=== PATIENT | male | born 1975 | race Caucasian/White ===

== ENCOUNTER 2021-10-10 13:17 | Outpatient (CLI) | payer OTHER, SELFPAY | END 2021-10-10 13:18 | disposition home or self-care (01) | PROVIDERS: Visit Provider Nurse Practitioner Family | DX: R35.0 Frequency of micturition (principal) | CPT/HCPCS: 84153 ==

== ENCOUNTER 2021-10-14 12:17 | Emergency (ER) | payer OTHER, SELFPAY ==
[2021-10-14 12:32] VITALS: BP 152/102; PULSE 77; RESP 22; TEMP 36.2; O2SAT 98; BMI 34.3
--- NOTE | 2021-10-14 12:53 | CRLHL7_ITS ---
For Patients: As a result of the Century Cures Act, medical imaging exams and procedure reports are released immediately into your electronic medical record. You may view this report before your referring provider. If you have questions, please contact your health care provider. Indication: Left lower quadrant pain x4 days Technique: Volumetric multidetector CT images of the abdomen and pelvis were obtained after the administration of intravenous contrast. 126 cc Isovue 370 low osmolar intravenous contrast Comparison: None available. Findings: The lung bases are clear. The liver is enlarged with marked hepatomegaly and hepatic steatosis. Cystic change of the left liver is seen. The portal vein is patent. The gallbladder is unremarkable without evidence of radiopaque calculus. There is no significant common biliary ductal dilatation or abrupt cut off. The spleen is normal in enhancement and size. There is likely mild chronic gastritis change and fatty infiltration of the gastric mucosa. The pancreas is normal in enhancement without significant atrophy. The adrenal glands are unremarkable. The kidneys demonstrate preserved corticomedullary differentiation without evidence of obstructive uropathy. There is moderate stool seen throughout the colon with distal colonic diverticulosis and questionable mild focal thickening of the mid sigmoid colon which may represent minimal colitis change. There is no overt pericolonic inflammation. The appendix is unremarkable. There is no significant mesenteric, retroperitoneal, or pelvic sidewall lymph nodes. The aorta is nonaneurysmal. There is no significant atherosclerotic disease appreciated. The solid pelvic viscera are grossly unremarkable. There is no free fluid or free air. The anterior abdominal wall is intact without significant hernias. Lumbar vertebral body heights are grossly maintained with mild straightening of the normal lumbar lordosis. There is no significant spondylolisthesis or displaced fracture. Impression: Moderate stool seen throughout the colon with colonic diverticulosis of the sigmoid colon with mild focal thickening of the sigmoid colon which may represent mild diverticulitis changes. Moderate hepatomegaly and hepatic steatosis with cyst of the left liver lobe. Mild to moderate chronic gastritis changes. Please note that all CT scans at this facility use dose modulation, iterative reconstruction, and/or weight-based dosing when appropriate to reduce radiation dose to as low as reasonably achievable. Dictated by Jeffrey Murguia MD @ 10/14/2021 1:49:26 PM (Electronically Signed)
--- NOTE | 2021-10-14 13:14 | ED_ITS ---
HPI - Abdominal Pain General Date Seen: 10/14/21 Chief Complaint: Abdominal Pain Stated Complaint: Abdominal pain Time Seen by Provider: 10/14/21 12:35 Source: patient Mode of arrival: ambulatory Limitations: no limitations History of Present Illness HPI narrative: Patient is very nice 46-year-old gentleman who presents here with 3-4 days of abdominal pain left lower quadrant with some radiation to suprapubic region. He describes it worse when he is up moving around but also in the middle the night. It is associated with lots of frequency of urination. But no dysuria. He has had no fevers or chills, 1 loose stool but really no diarrhea or any other concern. He has been seen [facility], and urinalysis was negative, but they started him on Cipro twice daily any said this really is not help. He did find some relief with ibuprofen, and presents here on suggestion of urgent care. No previous history of hospitalizations surgeries on no chronic medication. MD elicited complaint: abdominal pain Pertinent past history: none Onset (ago): day(s) (4) Pain Consistency: constant Location: LLQ Severity: moderate Quality: cramping Radiation: suprapubic Migration to: suprapubic Exacerbating factors: movement Relieving factors: bowel movement Associated symptoms: denies other symptoms Related Data Home Medications Medication Instructions Recorded Confirmed alprazolam 1 mg tablet 1 mg PO QDAY PRN anxiety 10/10/21 10/10/21 cyclobenzaprine 10 mg tablet 10 mg PO TID PRN muscle spasm 10/10/21 10/10/21 lisinopril 40 mg tablet 40 mg PO QDAY 10/10/21 10/10/21 trazodone 50 mg tablet 50 mg PO QDAY PRN sleep 10/10/21 10/10/21 Previous Rx's Medication Instructions Recorded ciprofloxacin HCl 500 mg tablet 500 mg PO BID #14 tabs 10/11/21 ciprofloxacin HCl 500 mg tablet 500 mg PO BID #14 tabs 10/14/21 (Cipro) metronidazole 500 mg tablet 500 mg PO BID #20 tabs 10/14/21 Allergies Allergy/AdvReac Type Severity Reaction Status Date / Time No Known Drug Allergies Allergy Verified 10/14/21 13:23 Review of Systems Status of ROS Reports: 10 or more systems reviewed and unremarkable except as noted in History and below PFSH PFSH Social History Smoking Status: Never smoker How often do you have a drink containing alcohol: never AUDIT-C Alcohol total score: 0 Non-prescribed substance use: denies use service: No Exam Narrative: Exam Narrative: Patient is a very nice 46-year-old gentleman in no apparent distress BMI is elevated, pupils equal round reactive to light there is no scleral icterus redness TMs are normal oropharynx normal neck is supple full range of motion there is no lymphadenopathy anterior posterior chains chest is clear heart sounds are normal abdomen soft tenderness is notable in the left lower quadrant, groins are normal bilaterally, with no hernias, normal male genitalia circumcised, moves all extremities independently well, no rashes neurologic intact moving upper and lower extremities. Const: Vital Signs, click to edit/add: Vital Signs - 24 hr 10/14/21 12:32 Temperature 97.1 F L Pulse Rate [Pulse Oximeter] 77 Respiratory Rate 22 Blood Pressure [Ri ght Upper Arm] 152/102 H Pulse Oximetry 98 Oxygen Delivery Me thod Room Air Documenting provider has reviewed patient's vital signs: yes Course Course Hospital Course: Reviewed with the patient the laboratory work, which was all very reassuring, normal white count normal urinalysis, CT showed possible mild diverticulitis which was what our thought process was pre CT. I spoke with both him and also his by telephone, about this. I recommend continuing the Cipro when starting Flagyl and avoid alcohol. I will give him a total of 10 days worth of both medications, he already has the Cipro partial prescription. May use some Tylenol ibuprofen with this, and I recommend follow-up with Dr. Barr and consideration per of whether not he needs a colonoscopy. Vital Signs Vital signs: Initial Vital Signs Temperature 97.1 F L 10/14/21 12:32 Temperature Source Temporal Artery Scan 10/14/21 12:32 Pulse Rate 77 10/14/21 12:32 Respiratory Rate 22 10/14/21 12:32 Blood Pressure 152/102 H 10/14/21 12:32 Blood Pressure Mean 118 10/14/21 12:32 Blood Pressure Position Sitting 10/14/21 12:32 Pulse Oximetry 98 10/14/21 12:32 Oxygen Delivery Method 10/14/21 12:32 Vital Signs Temperature 97.1 F L 10/14/21 12:32 Pulse Rate 77 10/14/21 12:32 Respiratory Rate 22 10/14/21 12:32 Blood Pressure 152/102 H 10/14/21 12:32 Pulse Oximetry 98 10/14/21 12:32 Oxygen Delivery Method 10/14/21 12:32 Temperature 97.1 F L 10/14/21 12:32 Pulse Rate 77 10/14/21 12:32 Respiratory Rate 22 10/14/21 12:32 Blood Pressure 152/102 H 10/14/21 12:32 Pulse Oximetry 98 10/14/21 12:32 Oxygen Delivery Method 10/14/21 12:32 MDM - Abdominal Pain MDM Narrative Medical decision making narrative: During this evaluation of this patient I considered multiple differential diagnosis is which included the life-threatening such as appendicitis, aortic aneurysm, mesenteric ischemia, bowel perforation, volvulus, and bowel obstruction. Other differential diagnosis is include but are not limited to cholecystitis, pancreatitis, hepatitis, gastritis, GERD, diverticulitis, peptic ulcer disease, pyelonephritis/UTI, renal colic/stone, testicular torsion as well as other acute scrotal processes, inflammatory bowel disease, as well as other etiologies Medical Records Attestation: I reviewed the patient's medical records. Lab Data Attestation: I reviewed the patient's lab results. Labs: Lab Results 10/14/21 10/14/21 10/14/21 Range/Units 13:05 13:10 13:17 WBC 9.02 (4.50-11.00) K/uL RBC 5.35 (4.30-5.90) m/uL Hgb 15.5 (13.5-17.5) gm/dL Hct 47.4 (37.0-53.0) % MCV 89 (80-100) fL MCH 29 (26-34) pg MCHC 33 (32-36) gm/dL RDW Coeff of Miracle 14.5 (11.5-15.5) % Plt Count 279 (140-440) K/uL Neut % (Auto) 52.7 (42.0-72.0) % Lymph % (Auto) 31.7 (20-44) % Grady % (Auto) 12.1 H (0.0-11.0) % Eos % (Auto) 2.7 (0.0-7.0) % Baso % (Auto) 0.6 (0.0-3.0) % Neut # (Auto) 4.76 (1.7-7.0) K/uL Lymph # (Auto) 2.86 (0.90-2.90) K/uL Grady # (Auto) 1.10 H (0.00-0.90) K/UL Eos # (Auto) 0.24 (0.00-0.50) K/uL Baso # (Auto) 0.05 (0.00-0.30) K/uL Abs Immat Gran (auto) 0.02 (0.00-0.30) K/uL Sodium (135-149) mmol/L Potassium (3.6-5.1) mmol/L Chloride (96-114) mmol/L Carbon Dioxide (20-32) mmol/L BUN (5-24) mg/dL Creatinine (0.5-1.5) mg/dL Estimated Creat Clear Estimated GFR ml/min Glucose (60-115) mg/dL Calcium (8.4-10.6) mg/dL Total Bilirubin (0.1-1.5) mg/dL Direct Bilirubin (0.0-0.5) mg/dL AST (12-35) U/L ALT (4-50) U/L Alkaline Phosphatase (40-150) U/L C-Reactive Protein (0.5-1.0) mg/dL Total Protein (6.0-8.3) g/dL Albumin (3.3-5.0) g/dL Amylase (18-89) U/L Lipase (23-300) U/L Urine Color Yellow (Yellow) Urine Appearance Clear (Clear) Urine pH 5.0 (5.0-8.5) Ur Specific [place] >= 1.030 (1.000-1.030) Urine Protein Negative (Negative) Urine Glucose (UA) Negative (Negative) Urine Ketones Negative (Negative) Urine Blood Trace-intact A (Negative) Urine Nitrite Negative (Negative) Urine Bilirubin Negative (Negative) Urine Urobilinogen 0.2 (0.2-1.0) Ur Leukocyte Esterase Negative (Negative) Urine RBC 0-2 (0-2) Urine WBC 0-2 (0-5) Ur Squamous Epith Cells Few (None-Few) Urine Bacteria Few A (None) Urine Mucus Many A (None) SARS-CoV-2 (PCR) Negative SARS-CoV-2 (Negative) Influenza Type A (PCR) Negative PCR FLU A (Negative) Influenza Type B (PCR) Negative PCR FLU B (Negative) RSV (PCR) Negative PCR RSV (Negative) 10/14/21 Range/Units 13:17 WBC (4.50-11.00) K/uL RBC (4.30-5.90) m/uL Hgb (13.5-17.5) gm/dL Hct (37.0-53.0) % MCV (80-100) fL MCH (26-34) pg MCHC (32-36) gm/dL RDW Coeff of Miracle (11.5-15.5) % Plt Count (140-440) K/uL Neut % (Auto) (42.0-72.0) % Lymph % (Auto) (20-44) % Grady % (Auto) (0.0-11.0) % Eos % (Auto) (0.0-7.0) % Baso % (Auto) (0.0-3.0) % Neut # (Auto) (1.7-7.0) K/uL Lymph # (Auto) (0.90-2.90) K/uL Grady # (Auto) (0.00-0.90) K/UL Eos # (Auto) (0.00-0.50) K/uL Baso # (Auto) (0.00-0.30) K/uL Abs Immat Gran (auto) (0.00-0.30) K/uL Sodium 138 (135-149) mmol/L Potassium 4.2 (3.6-5.1) mmol/L Chloride 102 (96-114) mmol/L Carbon Dioxide 27 (20-32) mmol/L BUN 15 (5-24) mg/dL Creatinine 1.0 (0.5-1.5) mg/dL Estimated Creat Clear 105.42 Estimated GFR 95 ml/min Glucose 85 (60-115) mg/dL Calcium 7.9 L (8.4-10.6) mg/dL Total Bilirubin 0.2 (0.1-1.5) mg/dL Direct Bilirubin 0.2 (0.0-0.5) mg/dL AST 36 H (12-35) U/L ALT 64 H (4-50) U/L Alkaline Phosphatase 78 (40-150) U/L C-Reactive Protein < 0.5 L (0.5-1.0) mg/dL Total Protein 7.0 (6.0-8.3) g/dL Albumin 4.1 (3.3-5.0) g/dL Amylase 57 (18-89) U/L Lipase 82 (23-300) U/L Urine Color (Yellow) Urine Appearance (Clear) Urine pH (5.0-8.5) Ur Specific [place] (1.000-1.030) Urine Protein (Negative) Urine Glucose (UA) (Negative) Urine Ketones (Negative) Urine Blood (Negative) Urine Nitrite (Negative) Urine Bilirubin (Negative) Urine Urobilinogen (0.2-1.0) Ur Leukocyte Esterase (Negative) Urine RBC (0-2) Urine WBC (0-5) Ur Squamous Epith Cells (None-Few) Urine Bacteria (None) Urine Mucus (None) SARS-CoV-2 (PCR) (Negative) Influenza Type A (PCR) (Negative) Influenza Type B (PCR) (Negative) RSV (PCR) (Negative) Imaging Data CT scan - abdomen: My impression: Mild the inflammation around descending colon/sigmoid on the left side. Radiologist's impression: Patient: [facility] Facility:?[facility] Patient ID:?[id number] Site Patient ID:?[id number]. Site :?[id number] Study:?CT Abdomen/Pelvis W/ 126CC [id number] 1:34:29 PM Ordering Physician:Che Car Final Report: Indication: Left lower quadrant pain x4 days Technique: Volumetric multidetector CT images of the abdomen and pelvis were obtained after the administration of intravenous contrast. 126 cc Isovue 370 low osmolar intravenous contrast Comparison: None available. Findings: The lung bases are clear. The liver is enlarged with marked hepatomegaly and hepatic steatosis. Cystic change of the left liver is seen. The portal vein is patent. The gallbladder is unremarkable without evidence of radiopaque calculus. There is no significant common biliary ductal dilatation or abrupt cut off. The spleen is normal in enhancement and size. There is likely mild chronic gastritis change and fatty infiltration of the gastric mucosa. The pancreas is normal in enhancement without significant atrophy. The adrenal glands are unremarkable. The kidneys demonstrate preserved corticomedullary differentiation without evidence of obstructive uropathy. There is moderate stool seen throughout the colon with distal colonic diverticulosis and questionable mild focal thickening of the mid sigmoid colon which may represent minimal colitis change. There is no overt pericolonic inflammation. The appendix is unremarkable. There is no significant mesenteric, retroperitoneal, or pelvic sidewall lymph nodes. The aorta is nonaneurysmal. There is no significant atherosclerotic disease appreciated. The solid pelvic viscera are grossly unremarkable. There is no free fluid or free air. The anterior abdominal wall is intact without significant hernias. Lumbar vertebral body heights are grossly maintained with mild straightening of the normal lumbar lordosis. There is no significant spondylolisthesis or displaced fracture. Impression: Moderate stool seen throughout the colon with colonic diverticulosis of the sigmoid colon with mild focal thickening of the sigmoid colon which may represent mild diverticulitis changes. Moderate hepatomegaly and hepatic steatosis with cyst of the left liver lobe. Mild to moderate chronic gastritis changes. Please note that all CT scans at this facility use dose modulation, iterative reconstruction, and/or weight-based dosing when appropriate to reduce radiation dose to as low as reasonably achievable. Dictated by Jeffrey Murguia MD @ 10/14/2021 1:49:26 PM (Electronic Signature) Discharge Plan Discharge Clinical Impression: Diverticulitis Patient Disposition: Home, Self-Care Condition: Stable Instructions: Diverticulitis (ED), Diverticulitis Diet (ED) Additional Instructions: Home rest I will give the 2 prescriptions 1 for 7 more days of the Cipro, and we will add in some metronidazole also with this. Medications help stop the inflammation and the infection, also recommend that you not drink alcohol at all while on the medications, and for 48 hours after stopping them. I have given you information on diet, and diverticulitis, increasing pain, fevers chills, then follow-up is necessary in the ER otherwise keep your appointment to see Prescriptions: New metronidazole 500 mg tablet 500 mg PO BID Qty: 20 0RF ciprofloxacin HCl [Cipro] 500 mg tablet 500 mg PO BID Qty: 14 0RF No Action lisinopril 40 mg tablet 40 mg PO QDAY trazodone 50 mg tablet 50 mg PO QDAY PRN (Reason: sleep) alprazolam 1 mg tablet 1 mg PO QDAY PRN (Reason: anxiety) cyclobenzaprine 10 mg tablet 10 mg PO TID PRN (Reason: muscle spasm) ciprofloxacin HCl 500 mg tablet 500 mg PO BID Qty: 14 0RF Follow Up/Referrals: Marc Barr MD [Staff Physician] - Provider,Not a Local [Primary Care Provider] - Stand Alone Forms: [employer] Info Instructions
[2021-10-14 13:35] LABS: Basophils Absolute Auto 0.05 K/uL (0.00-0.30); Basophils Percent Auto 0.6 % (0.0-3.0); Eosinophils Absolute Auto 0.24 K/uL (0.00-0.50); Eosinophils Percent Auto 2.7 % (0.0-7.0); Hematocrit 47.4 % (37.0-53.0); Hemoglobin* 15.5 gm/dL (13.5-17.5); Immature Granulocytes Abs Auto 0.02 K/uL (0.00-0.30); Lymphocytes Absolute Auto 2.86 K/uL (0.90-2.90); Lymphocytes Percent Auto 31.7 % (20-44); Mean Corpuscular HGB Conc 33 gm/dL (32-36); Mean Corpuscular Hemoglobin 29 pg (26-34); Mean Corpuscular Volume 89 fL (80-100); Monocytes Percent Auto 12.1 % (0.0-11.0); Neutrophils Absolute Auto 4.76 K/uL (1.7-7.0); Neutrophils Percent Auto 52.7 % (42.0-72.0); Platelet Count* 279 K/uL (140-440); RDW Coefficient of Variation % 14.5 % (11.5-15.5); Red Blood Count 5.35 m/uL (4.30-5.90); White Blood Count* 9.02 K/uL (4.50-11.00)
[2021-10-14] MEDS: 0.9 % SODIUM CHLORIDE 1000 ml 1,000 ML IV (13:42)
[2021-10-14 13:44] LABS: Slide Review Reflex No
[2021-10-14 13:48] LABS: Appearance Urine Clear (Clear); Bilirubin Urine Negative (Negative); Blood Urine Trace-intact (Negative); Color Urine Yellow (Yellow); Glucose Urine Negative (Negative); Ketones Urine Negative (Negative); Leukocyte Esterase Urine Negative (Negative); Nitrite Urine Negative (Negative); Protein Urine Negative (Negative); Specific Gravity Urine >= 1.030 (1.000-1.030); Urobilinogen Urine 0.2 (0.2-1.0)
[2021-10-14 14:06] LABS: RBC Urine 0-2 (0-2)
[2021-10-14 14:07] LABS: Bacteria Urine Few; Mucus Urine Many; Squamous Epithelial Cell Urine Few (None-Few); WBC Urine 0-2 (0-5)
[2021-10-14 14:10] LABS: PCR FLU A Negative PCR FLU A (Negative); PCR FLU B Negative PCR FLU B (Negative); PCR RSV Negative PCR RSV (Negative); SARS PCR* Negative SARS-CoV-2 (Negative)
[2021-10-14 14:19] LABS: Albumin* 4.1 g/dL (3.3-5.0); Chloride* 102 mmol/L (96-114); Sodium* 138 mmol/L (135-149)
[2021-10-14 14:20] LABS: Potassium* 4.2 mmol/L (3.6-5.1)
[2021-10-14 14:21] LABS: Amylase* 57 U/L (18-89); Est. Creatinine Clearance* 105.42; Estimated Glomerular Filt Rate 95 ml/min
[2021-10-14 14:22] LABS: Alkaline Phosphatase* 78 U/L (40-150); Aspartate Amino Transferase* 36 U/L (12-35); Bilirubin Direct* 0.2 mg/dL (0.0-0.5); Bilirubin Total* 0.2 mg/dL (0.1-1.5); Blood Urea Nitrogen* 15 mg/dL (5-24); Carbon Dioxide* 27 mmol/L (20-32); Glucose* 85 mg/dL (60-115)
[2021-10-14 14:23] LABS: Alanine Aminotransferase* 64 U/L (4-50); Calcium* 7.9 mg/dL (8.4-10.6); Lipase* 82 U/L (23-300)
[2021-10-14 14:26] LABS: C Reactive Protein* < 0.5 mg/dL (0.5-1.0)
== END 2021-10-14 15:05 | disposition home or self-care (01) ==
PROVIDERS: Emergency Provider Family Medicine
DX: R10.32 Left lower quadrant pain (principal); K57.92 Diverticulitis of intestine, part unspecified, without perforation or abscess without bleeding
CPT/HCPCS: 36415; 74177; 80048; 80076; 81001; 81003; 81015; 82150; 83690; 84703; 85025; 86140; 87086; 87502; 87634; 87635; 96360; 99284; J7030; Q9967

== ENCOUNTER 2021-10-21 10:34 | Outpatient (CLI) | payer OTHER, SELFPAY ==
[2021-10-21 14:34] LABS: C Reactive Protein* < 0.5 mg/dL (0.5-1.0)
== END 2021-10-21 10:35 | disposition home or self-care (01) ==
LOC: LKVREF 10:36
PROVIDERS: Visit Provider Family Medicine
DX: K57.32 Diverticulitis of large intestine without perforation or abscess without bleeding (principal)
CPT/HCPCS: 86140

== ENCOUNTER 2021-10-27 11:36 | Outpatient (CLI) | payer OTHER, SELFPAY ==
[2021-10-27 11:48] LABS: Basophils Absolute Auto 0.05 K/uL (0.00-0.30); Basophils Percent Auto 0.6 % (0.0-3.0); Eosinophils Absolute Auto 0.25 K/uL (0.00-0.50); Eosinophils Percent Auto 3.1 % (0.0-7.0); Hematocrit 46.9 % (37.0-53.0); Hemoglobin* 15.3 gm/dL (13.5-17.5); Lymphocytes Absolute Auto 2.44 K/uL (0.90-2.90); Lymphocytes Percent Auto 30.1 % (20-44); Mean Corpuscular HGB Conc 33 gm/dL (32-36); Mean Corpuscular Hemoglobin 29 pg (26-34); Mean Corpuscular Volume 90 fL (80-100); Monocytes Percent Auto 8.6 % (0.0-11.0); Neutrophils Absolute Auto 4.67 K/uL (1.7-7.0); Neutrophils Percent Auto 57.6 % (42.0-72.0); Platelet Count* 277 K/uL (140-440); Red Blood Count 5.23 m/uL (4.30-5.90); White Blood Count* 8.11 K/uL (4.50-11.00)
[2021-10-27 11:50] LABS: Slide Review Reflex No
[2021-10-27 22:12] LABS: Albumin* 4.7 g/dL (3.3-5.0); Chloride* 104 mmol/L (96-114); Sodium* 138 mmol/L (135-149)
[2021-10-27 22:13] LABS: Potassium* 4.1 mmol/L (3.6-5.1)
[2021-10-27 22:15] LABS: Bilirubin Total* 0.6 mg/dL (0.1-1.5); Carbon Dioxide* 23 mmol/L (20-32); Estimated Glomerular Filt Rate 95 ml/min
[2021-10-27 22:16] LABS: Alanine Aminotransferase* 81 U/L (4-50); Alkaline Phosphatase* 81 U/L (40-150); Aspartate Amino Transferase* 60 U/L (12-35); Blood Urea Nitrogen* 16 mg/dL (5-24); Calcium* 9.3 mg/dL (8.4-10.6); Glucose* 135 mg/dL (60-115); Total Protein* 7.8 g/dL (6.0-8.3)
[2021-10-27 22:19] LABS: C Reactive Protein* < 0.5 mg/dL (0.5-1.0)
== END 2021-10-27 11:37 | disposition home or self-care (01) ==
PROVIDERS: PCP Family Medicine; Visit Provider Family Medicine
DX: R10.9 Unspecified abdominal pain (principal); K57.32 Diverticulitis of large intestine without perforation or abscess without bleeding; I10 Essential (primary) hypertension; R35.0 Frequency of micturition
CPT/HCPCS: 80053; 85025; 86140

== ENCOUNTER 2021-10-28 08:51 | Outpatient (CLI) | payer OTHER, SELFPAY ==
--- NOTE | 2021-10-28 10:00 | CRLHL7_ITS ---
For Patients: As a result of the Century Cures Act, medical imaging exams and procedure reports are released immediately into your electronic medical record. You may view this report before your referring provider. If you have questions, please contact your health care provider. Indication: Abdominal pain Technique: Postcontrast CT abdomen and pelvis. 98 cc Isovue 370 intravenous contrast. Please note that all CT scans at this facility use dose modulation, iterative reconstruction, and/or weight-based dosing when appropriate to reduce radiation dose to as low as reasonably achievable. Comparison: 10/14/2021 Findings: Lung bases clear. Diffuse hepatic steatosis. Simple cyst left hepatic lobe. Mild incidental differential profusion regarding the anterior liver. Gallbladder normal. Adrenal glands, kidneys, ureters, spleen and pancreas are normal. No adenopathy. No free air, free fluid or abscess. Sigmoid diverticulosis. No diverticulitis. No evidence of inflammatory bowel disease. No fracture. Bladder normal. Impression: No acute intra-abdominal or intrapelvic pathology. Chronic hepatic steatosis. Please note that all CT scans at this facility use dose modulation, iterative reconstruction, and/or weight-based dosing when appropriate to reduce radiation dose to as low as reasonably achievable. Dictated by Manolo German MD @ 10/28/2021 11:43:29 AM (Electronically Signed)
== END 2021-10-28 08:52 | disposition home or self-care (01) ==
LOC: CT 08:52
PROVIDERS: PCP Family Medicine; Visit Provider Family Medicine
DX: R10.9 Unspecified abdominal pain (principal); K76.0 Fatty (change of) liver, not elsewhere classified
CPT/HCPCS: 74177; Q9967

== ENCOUNTER 2022-11-03 04:49 | Emergency (ER) | payer OTHER, SELFPAY ==
[2022-11-03 04:54] VITALS: BP 167/114; PULSE 64; RESP 16; TEMP 37.1; O2SAT 97; BMI 34.3
--- NOTE | 2022-11-03 05:13 | ED_ITS ---
HPI - General Adult General Chief complaint: Flank Pain Stated complaint: Back Pain Time Seen by Provider: 11/03/22 04:59 Source: patient Mode of arrival: ambulatory Limitations: no limitations History of Present Illness HPI narrative: 47-year-old male known to me from [employer] presents to the emergency department with a 1-1/2 hour history of right-sided flank pain, sudden onset, woke from sleep. Was accompanied by vomiting x1. No hematuria, no dysuria. No fever. No trauma or injury. Prior history of similar symptoms 10 years ago when he had a kidney stone. It does not sound as though that would require lithotripsy, surgery or stent placement. No problems since. He does have a history of hypertension, takes lisinopril for this. He tried taking some ibuprofen at 3:00 a.m. with no significant improvement in symptoms. Other than the episode 10 years ago, no history of chronic kidney disease or long-term kidney problems. I reviewed the chart and see that he had labs last drawn about a year ago, good kidney function, normal electrolytes at that time. No other abdominal pain, no rash. No other concerns today. Past medical history notable for hypertension, only home medication is lisinopr il. Nonsmoker. ROS notable for the flank pain and urinary symptoms as above, otherwise denies times 12 systems. Related Data Home Medications Medication Instructions Recorded Confirmed trazodone 50 mg tablet 50 mg PO QDAY PRN sleep 10/10/21 10/27/21 Previous Rx's Medication Instructions Recorded lisinopril 40 mg tablet 40 mg PO QDAY #90 tabs 10/21/21 tamsulosin 0.4 mg capsule (Flomax) 0.4 mg PO DAILY PRN #7 caps 11/03/22 Allergies Allergy/AdvReac Type Severity Reaction Status Date / Time No Known Drug Allergies Allergy Verified 11/03/22 04:54 [facility] Medical History Diverticulitis large intestine ?K57.32 - Diverticulitis of large intestine without perforation or abscess without bleeding (ICD-10) History of rotator cuff syndrome ?Z87.39 - Personal history of other diseases of the musculoskeletal system and connective tissue (ICD-10) History of hyperlipidemia ?Z86.39 - Personal history of other endocrine, nutritional and metabolic disease (ICD-10) History of erectile dysfunction ?Z87.438 - Personal history of other diseases of male genital organs (ICD-10) Surgical History Status post appendectomy ?Z90.49 - Acquired absence of other specified parts of digestive tract (ICD- 10) Family History Father High blood pressure Mother High blood pressure Social History Smoking Status: Former smoker How often do you have a drink containing alcohol: never AUDIT-C Alcohol total score: 0 Non-prescribed substance use: denies use service: No Exam Const: Vital Signs, click to edit/add: Vital Signs - 24 hr 11/03/22 04:54 Temperature 98.8 F Pulse Rate [Pulse Oximeter] 64 Respiratory Rate 16 Blood Pressure [Ri ght Upper Arm] 167/114 H Pulse Oximetry 97 Oxygen Delivery Me thod Room Air Documenting provider has reviewed patient's vital signs: yes Common normals: no apparent distress General appearance: cooperative and well kempt HENMT: Common normals: normocephalic Head and scalp: normocephalic Face and sinus: normal facial exam Eye: Common normals: conjunctivae normal General eye: normal appearance of both eyes Conjunctiva: conjunctiva(e) normal Neck & C-Spine: Common normals: no lymphadenopathy Resp: Common normals: normal respiratory effort, no use of accessory muscles and clear to auscultation bilaterally Effort & inspection: able to speak in complete sentences Auscultation: clear to auscultation bilaterally Cardio: Common normals: regular rate, regular rhythm, S1 normal heart sound, S2 normal heart sound and no murmurs Rate: regular rate Rhythm: regular rhythm Heart sounds: S1 normal and S2 normal GI: Common normals: Normal to inspection, nondistended, normoactive bowel sounds present, soft to palpation, non-tender, no hepatosplenomegaly and no masses Palpation: soft and no hepatosplenomegaly : Common normals: no CVA tenderness Bladder/kidney exam: no CVA tenderness Back & Pelvis: Common normals: no CVA tenderness Other: Mild tenderness to right lower lateral back area, not CVA area Extremity: Common normals: normal to inspection and normal capillary refill Psych: Common normals: speech normal Appearance: well kempt Activity/motor behavior: appropriate eye contact Speech: normal speech Insight: insight good Judgement: judgment good Other: Mildly uncomfortable but very cooperative. No impairment. Skin: Common normals: no rashes or lesions noted General skin exam: no rashes or lesions noted Course Course ED Course: Suspect kidney stone. Urinalysis ordered. Will place IV, give 15 mg of IV Toradol, 4 Zofran and 0.4 of Flomax while we await basic lab results for CBC, basic metabolic panel and CRP results. Suspect urinalysis will show trace blood and will then plan for noncontrast CT. Differential diagnosis also includes diverticulitis, intestinal obstruction, volvulus, appendicitis, shingles, musculoskeletal etiology, among others. Awaiting lab findings. Reevaluation(s) Reevaluation #1: CT findings reviewed with patient, 2 mm UVJ stone noted. Labs are overall reassuring. No signs of significant leukocytosis, infection or other abnormality. Toradol did help but not to his liking, will give 10 mg of oral oxycodone. No further vomiting. Tolerated IV fluids well. Discussed management. Patient will be given oral Toradol and oral oxycodone to use p.r.n. from [facility]. Work note given. Flomax sent to pharmacy to use once daily until stone passes. Push fluids. Alarm symptoms of fever, weakness, worsening symptoms reviewed. Patient verbalizes understanding and agreement. Vital Signs Vital signs: Initial Vital Signs Temperature 98.8 F 11/03/22 04:54 Temperature Source Temporal Artery Scan 11/03/22 04:54 Pulse Rate 64 11/03/22 04:54 Pulse Rhythm Regular 11/03/22 04:54 Respiratory Rate 16 11/03/22 04:54 Blood Pressure 167/114 H 11/03/22 04:54 Blood Pressure Mean 131 H 11/03/22 04:54 Pulse Oximetry 97 11/03/22 04:54 Oxygen Delivery Method Room Air 11/03/22 04:54 Vital Signs Temperature 98.8 F 11/03/22 04:54 Pulse Rate 64 11/03/22 04:54 Respiratory Rate 16 11/03/22 04:54 Blood Pressure 167/114 H 11/03/22 04:54 Pulse Oximetry 97 11/03/22 04:54 Oxygen Delivery Method Room Air 11/03/22 04:54 Temperature 98.8 F 11/03/22 04:54 Pulse Rate 64 11/03/22 04:54 Respiratory Rate 16 11/03/22 04:54 Blood Pressure 167/114 H 11/03/22 04:54 Pulse Oximetry 97 11/03/22 04:54 Oxygen Delivery Method Room Air 11/03/22 04:54 Medical Decision Making Lab Data Lab results reviewed: Yes I reviewed the patient's lab results Lab results narrative: Reassuring Labs: Lab Results 11/03/22 11/03/22 11/03/22 Range/Units 04:55 04:55 04:55 WBC (4.50-11.00) K/uL RBC (4.30-5.90) m/uL Hgb (13.5-17.5) gm/dL Hct (37.0-53.0) % MCV (80-100) fL MCH (26-34) pg MCHC (32-36) gm/dL RDW Coeff of Miracle (11.5-15.5) % Plt Count (140-440) K/uL Neut % (Auto) (42.0-72.0) % Lymph % (Auto) (20-44) % Cameron % (Auto) (0.0-11.0) % Eos % (Auto) (0.0-7.0) % Baso % (Auto) (0.0-3.0) % Neut # (Auto) (1.7-7.0) K/uL Lymph # (Auto) (0.90-2.90) K/uL Cameron # (Auto) (0.00-0.90) K/UL Eos # (Auto) (0.00-0.50) K/uL Baso # (Auto) (0.00-0.30) K/uL Abs Immat Gran (auto) (0.00-0.30) K/uL Imm/Tot Granulo (auto) % Sodium (135-149) mmol/L Potassium (3.6-5.1) mmol/L Chloride (96-114) mmol/L Carbon Dioxide (20-32) mmol/L Anion Gap (7-15) mEq/L BUN (5-24) mg/dL Creatinine (0.5-1.5) mg/dL Estimated Creat Clear Estimated GFR ml/min Glucose (60-115) mg/dL Calcium (8.4-10.6) mg/dL C-Reactive Protein (0.5-1.0) mg/dL Urine Color Yellow (Yellow) Urine Appearance Clear (Clear) Urine pH 5.0 (5.0-8.5) Ur Specific [place] >= 1.030 (1.000-1.030) Urine Protein Trace A (Negative) Urine Glucose (UA) Negative (Negative) Urine Ketones Negative (Negative) Urine Blood Negative (Negative) Urine Nitrite Negative (Negative) Urine Bilirubin 1+ A (Negative) Urine Urobilinogen 0.2 (0.2-1.0) Ur Leukocyte Esterase Negative (Negative) Urine RBC Cancelled 0-2 Urine WBC Cancelled 0-2 Urine WBC Clumps Cancelled Ur Squamous Epith Cells Cancelled [place] Biurate Crystals Calcium Carbonate Cryst Calcium Phosphate Cryst Calcium Oxalate Crystal Cystine Crystals Uric Acid Crystals Triple Phos Crystals Sulfur Crystals Cholesterol Crystals Tyrosine Crystals Hippuric Acid Crystals Amorphous Sediment Other Sediment Urine Bacteria Fatty Casts Hyaline Casts Fine Granular Casts Coarse Granular Casts Waxy Casts RBC Casts WBC Casts Other Casts Urine Starch Urine Mucus Urine Trichomonas Urine Yeast 11/03/22 11/03/22 11/03/22 Range/Units 04:55 04:55 04:55 WBC (4.50-11.00) K/uL RBC (4.30-5.90) m/uL Hgb (13.5-17.5) gm/dL Hct (37.0-53.0) % MCV (80-100) fL MCH (26-34) pg MCHC (32-36) gm/dL RDW Coeff of Miracle (11.5-15.5) % Plt Count (140-440) K/uL Neut % (Auto) (42.0-72.0) % Lymph % (Auto) (20-44) % Cameron % (Auto) (0.0-11.0) % Eos % (Auto) (0.0-7.0) % Baso % (Auto) (0.0-3.0) % Neut # (Auto) (1.7-7.0) K/uL Lymph # (Auto) (0.90-2.90) K/uL Cameron # (Auto) (0.00-0.90) K/UL Eos # (Auto) (0.00-0.50) K/uL Baso # (Auto) (0.00-0.30) K/uL Abs Immat Gran (auto) (0.00-0.30) K/uL Imm/Tot Granulo (auto) % Sodium (135-149) mmol/L Potassium (3.6-5.1) mmol/L Chloride (96-114) mmol/L Carbon Dioxide (20-32) mmol/L Anion Gap (7-15) mEq/L BUN (5-24) mg/dL Creatinine (0.5-1.5) mg/dL Estimated Creat Clear Estimated GFR ml/min Glucose (60-115) mg/dL Calcium (8.4-10.6) mg/dL C-Reactive Protein (0.5-1.0) mg/dL Urine Color (Yellow) Urine Appearance (Clear) Urine pH (5.0-8.5) Ur Specific [place] (1.000-1.030) Urine Protein (Negative) Urine Glucose (UA) (Negative) Urine Ketones (Negative) Urine Blood (Negative) Urine Nitrite (Negative) Urine Bilirubin (Negative) Urine Urobilinogen (0.2-1.0) Ur Leukocyte Esterase (Negative) Urine RBC Urine WBC Urine WBC Clumps Ur Squamous Epith Cells Few [place] Biurate Crystals Cancelled Calcium Carbonate Cryst Cancelled Calcium Phosphate Cryst Cancelled Calcium Oxalate Crystal Cancelled Cystine Crystals Cancelled Uric Acid Crystals Cancelled Triple Phos Crystals Cancelled Sulfur Crystals Cancelled Cholesterol Crystals Cancelled Tyrosine Crystals Cancelled Hippuric Acid Crystals Cancelled Amorphous Sediment Cancelled Other Sediment Cancelled Urine Bacteria Cancelled Few A Fatty Casts Cancelled Hyaline Casts Cancelled Fine Granular Casts Cancelled Coarse Granular Casts Cancelled Waxy Casts Cancelled RBC Casts Cancelled WBC Casts Cancelled Other Casts Cancelled Urine Starch Cancelled Urine Mucus Cancelled Many A Urine Trichomonas Cancelled Urine Yeast Cancelled 11/03/22 Range/Units 05:15 WBC 8.82 (4.50-11.00) K/uL RBC 5.27 (4.30-5.90) m/uL Hgb 15.1 (13.5-17.5) gm/dL Hct 46.7 (37.0-53.0) % MCV 89 (80-100) fL MCH 29 (26-34) pg MCHC 32 (32-36) gm/dL RDW Coeff of Miracle 14.3 (11.5-15.5) % Plt Count 269 (140-440) K/uL Neut % (Auto) 50.8 (42.0-72.0) % Lymph % (Auto) 34.7 (20-44) % Cameron % (Auto) 10.4 (0.0-11.0) % Eos % (Auto) 3.2 (0.0-7.0) % Baso % (Auto) 0.6 (0.0-3.0) % Neut # (Auto) 4.48 (1.7-7.0) K/uL Lymph # (Auto) 3.06 H (0.90-2.90) K/uL Cameron # (Auto) 0.90 (0.00-0.90) K/UL Eos # (Auto) 0.28 (0.00-0.50) K/uL Baso # (Auto) 0.05 (0.00-0.30) K/uL Abs Immat Gran (auto) 0.03 (0.00-0.30) K/uL Imm/Tot Granulo (auto) 0.3 % Sodium 139 (135-149) mmol/L Potassium 4.1 (3.6-5.1) mmol/L Chloride 103 (96-114) mmol/L Carbon Dioxide 27 (20-32) mmol/L Anion Gap 9 (7-15) mEq/L BUN 16 (5-24) mg/dL Creatinine 1.1 (0.5-1.5) mg/dL Estimated Creat Clear 94.83 Estimated GFR 84 ml/min Glucose 155 H (60-115) mg/dL Calcium 9.4 (8.4-10.6) mg/dL C-Reactive Protein 0.9 (0.5-1.0) mg/dL Urine Color (Yellow) Urine Appearance (Clear) Urine pH (5.0-8.5) Ur Specific [place] (1.000-1.030) Urine Protein (Negative) Urine Glucose (UA) (Negative) Urine Ketones (Negative) Urine Blood (Negative) Urine Nitrite (Negative) Urine Bilirubin (Negative) Urine Urobilinogen (0.2-1.0) Ur Leukocyte Esterase (Negative) Urine RBC Urine WBC Urine WBC Clumps Ur Squamous Epith Cells [place] Biurate Crystals Calcium Carbonate Cryst Calcium Phosphate Cryst Calcium Oxalate Crystal Cystine Crystals Uric Acid Crystals Triple Phos Crystals Sulfur Crystals Cholesterol Crystals Tyrosine Crystals Hippuric Acid Crystals Amorphous Sediment Other Sediment Urine Bacteria Fatty Casts Hyaline Casts Fine Granular Casts Coarse Granular Casts Waxy Casts RBC Casts WBC Casts Other Casts Urine Starch Urine Mucus Urine Trichomonas Urine Yeast Imaging Data CT scan - abdomen: Attestation: I have reviewed the pertinent imaging results. My impression: Small stone at right UVJ Radiologist's impression: IMPRESSION: Right-sided obstructive uropathy due to a 2 millimeter calcified calculus at the right ureteropelvic junction. No intrarenal calculi noted. Please note that all CT scans at this facility use dose modulation, iterative reconstruction, and/or weight-based dosing when appropriate to reduce radiation dose to as low as reasonably achievable. Dictated by Domenic Ponce MD @ 11/03/2022 6:29:56 AM Discharge Plan Discharge Clinical Impression: Calculus of ureterovesical junction (UVJ) Patient Disposition: Home w/ Parent or Adult Condition: Improved Instructions: Ureteral Stones (ED) Additional Instructions: As we discussed, you have a 2 mm stone right at the junction of the right ureter as it enters the bladder. This is a common area for the stones to get hung up and cause more pain. Things improve markedly once it enters the bladder. Your homework is to drink as much fluid as possible (70-90 oz per day) to flush the stone. You have been given Flomax, a medication that will help with the spasm pain and help dilate open the ureter slightly. You were also given Toradol for pain and oxycodone. At home, start with the Toradol, 10 mg every 6 hours as needed for pain. Add in Tylenol 1000 mg every 6 hours as needed on top of this. If the pain is still very bothersome, take the oxycodone tablets 1-2 tablets every 4 hours as needed. You will only have a limited supply of the oxycodone. For most, the stones will pass within a couple of days, often within 24 hours into the bladder. In the bladder, they do often dissolved into smaller granules and then will eventually pass but this is less predictable. If you have no improvement of your symptoms within a week you should seek re-evaluation by her primary care or urgent care. Any fevers, feelings of severe sickness, you should come back to the emergency department. You may continue all of your other typical medications in the interim. No work for the next 24 hours. Activity Level: Activity as Tolerated Discharge Diet: Regular Prescriptions: New tamsulosin [Flomax] 0.4 mg capsule 0.4 mg PO DAILY PRNQty: 7 0RF No Action lisinopril 40 mg tablet 40 mg PO QDAY Qty: 90 3RF trazodone 50 mg tablet 50 mg PO QDAY PRN (Reason: sleep) Follow Up/Referrals: Marc Barr MD [Primary Care Provider] - Stand Alone Forms: Ready To Travel Info Instructions
[2022-11-03] MEDS: KETOROLAC 15 MG/ML inj IVP (05:16)
[2022-11-03] MEDS: ONDANSETRON 2 MG/ML inj 4 MG IVP (05:16)
[2022-11-03] MEDS: 0.9 % SODIUM CHLORIDE 1000 ml 1,000 ML IV (05:17)
[2022-11-03 05:28] LABS: Basophils Absolute Auto 0.05 K/uL (0.00-0.30); Basophils Percent Auto 0.6 % (0.0-3.0); Eosinophils Absolute Auto 0.28 K/uL (0.00-0.50); Eosinophils Percent Auto 3.2 % (0.0-7.0); Hematocrit 46.7 % (37.0-53.0); Hemoglobin* 15.1 gm/dL (13.5-17.5); Immature Granulocytes Abs Auto 0.03 K/uL (0.00-0.30); Immature Granulocytes Pct Auto 0.3 %; Lymphocytes Absolute Auto 3.06 K/uL (0.90-2.90); Lymphocytes Percent Auto 34.7 % (20-44); Mean Corpuscular HGB Conc 32 gm/dL (32-36); Mean Corpuscular Hemoglobin 29 pg (26-34); Mean Corpuscular Volume 89 fL (80-100); Monocytes Percent Auto 10.4 % (0.0-11.0); Neutrophils Absolute Auto 4.48 K/uL (1.7-7.0); Neutrophils Percent Auto 50.8 % (42.0-72.0); Platelet Count* 269 K/uL (140-440); RDW Coefficient of Variation % 14.3 % (11.5-15.5); Red Blood Count 5.27 m/uL (4.30-5.90); White Blood Count* 8.82 K/uL (4.50-11.00)
[2022-11-03 05:28] LABS: Appearance Urine Clear (Clear); Bilirubin Urine 1+ (Negative); Blood Urine Negative (Negative); Color Urine Yellow (Yellow); Glucose Urine Negative (Negative); Ketones Urine Negative (Negative); Leukocyte Esterase Urine Negative (Negative); Nitrite Urine Negative (Negative); Protein Urine Trace (Negative); Specific Gravity Urine >= 1.030 (1.000-1.030); Urobilinogen Urine 0.2 (0.2-1.0)
[2022-11-03 05:31] LABS: Slide Review Reflex No
[2022-11-03 05:37] LABS: Bacteria Urine Few; Mucus Urine Many; RBC Urine 0-2 (0-2); Squamous Epithelial Cell Urine Few (None-Few); WBC Urine 0-2 (0-5)
[2022-11-03 05:37] LABS: Chloride* 103 mmol/L (96-114); Potassium* 4.1 mmol/L (3.6-5.1); Sodium* 139 mmol/L (135-149)
--- NOTE | 2022-11-03 05:39 | CRLHL7_ITS ---
For Patients: As a result of the Century Cures Act, medical imaging exams and procedure reports are released immediately into your electronic medical record. You may view this report before your referring provider. If you have questions, please contact your health care provider. INDICATION: Right-sided flank pain COMPARISON: Prior studies are not currently available for comparison TECHNIQUE: CT examination of the abdomen and pelvis was performed without intravenous contrast. Thin section axial images were obtained from the lung bases through the pubic symphysis. Oral contrast was not administered. Please note that all CT scans at this facility use dose modulation, iterative reconstruction, and/or weight-based dosing when appropriate to reduce radiation dose to as low as reasonably achievable. FINDINGS: LUNG BASES: The lung bases as visualized appear normal.The heart size is normal at the lung bases. LIVER/BILIARY SYSTEM:Enlarged fatty infiltrated liver. No focal mass or biliary ductal dilation.The gallbladder appears normal ADRENALS: Normal non-contrast appearance KIDNEYS, URETERS and BLADDER:No definite intrarenal calculi. There is right-sided obstructive uropathy due to a 2 millimeter calcified calculus at the right ureteropelvic junction. SPLEEN:Normal non-contrast appearance. PANCREAS: Normal non-contrast appearance. RETROPERITONEUM and MESENTERY: There is no mass, adenopathy or aortic aneurysm. GASTROINTESTINAL SYSTEM: There is no evidence of diverticulitis, colitis, mechanical obstruction, or appendicitis. The small bowel as visualized appears normal.A few scattered diverticula are noted PELVIS: No mass, adenopathy or free fluid. OSSEOUS STRUCTURES and ABDOMINAL WALL: There is an age-appropriate appearance of the osseous structures.No significant abdominal wall defect. OTHER: No free fluid or free air. IMPRESSION: Right-sided obstructive uropathy due to a 2 millimeter calcified calculus at the right ureteropelvic junction. No intrarenal calculi noted. Please note that all CT scans at this facility use dose modulation, iterative reconstruction, and/or weight-based dosing when appropriate to reduce radiation dose to as low as reasonably achievable. Dictated by Domenic Ponce MD @ 11/03/2022 6:29:56 AM (Electronically Signed)
[2022-11-03 05:40] LABS: Creatinine* 1.1 mg/dL (0.5-1.5); Est. Creatinine Clearance* 94.83; Estimated Glomerular Filt Rate 84 ml/min
[2022-11-03 05:41] LABS: Anion Gap 9 mEq/L (7-15); Blood Urea Nitrogen* 16 mg/dL (5-24); Calcium* 9.4 mg/dL (8.4-10.6); Carbon Dioxide* 27 mmol/L (20-32); Glucose* 155 mg/dL (60-115)
[2022-11-03 05:43] LABS: C Reactive Protein* 0.9 mg/dL (0.5-1.0)
[2022-11-03] MEDS: OXYCODONE 5 MG TABLET 10 MG PO (06:34)
[2022-11-03] MEDS: TAMSULOSIN HCL 0.4 MG CAPSULE PO (06:34)
== END 2022-11-03 06:56 | disposition home or self-care (01) ==
PROVIDERS: Emergency Provider Family Medicine; PCP Family Medicine
DX: N20.1 Calculus of ureter (principal)
CPT/HCPCS: 36415; 74176; 80048; 81003; 81015; 85025; 86140; 87086; 96361; 96374; 96375; 99284; A9270; J1885; J2405; J7030

== ENCOUNTER 2022-12-17 11:34 | Outpatient (CLI) | payer OTHER, SELFPAY | END 2022-12-17 11:35 | disposition home or self-care (01) | LOC: NFLDREF 12-23 07:10 | PROVIDERS: PCP Family Medicine; Referring Provider Family Medicine; Visit Provider Family Medicine | DX: I10 Essential (primary) hypertension (principal); R10.9 Unspecified abdominal pain; R35.0 Frequency of micturition; R63.5 Abnormal weight gain | CPT/HCPCS: 80048; 80061; 84443 ==

== ENCOUNTER 2023-11-11 15:12 | Outpatient (CLI) | payer OTHER, SELFPAY | END 2023-11-11 15:13 | disposition home or self-care (01) | PROVIDERS: PCP Family Medicine; Visit Provider Family Medicine | DX: I10 Essential (primary) hypertension (principal); K57.50 Diverticulosis of both small and large intestine without perforation or abscess without bleeding | CPT/HCPCS: 80053; 86140 ==